=== PATIENT | male | born 1965 | race African-American/Black ===

== ENCOUNTER 2024-10-06 12:45 | Emergency (ER) | payer MEDICAID, OTHER ==
[~2024-10-06] VITALS: Ht 185.4 cm; Wt 86.0 kg
[~2024-10-06 12:45] MED LIST: AMLO5TAB88 PO; ASPI-1160 PO; LIP40 PO
[2024-10-06 13:09] VITALS: O2SAT 100
[2024-10-06] MEDS ORDERED: NITROGLYCERIN 0.4MG TABLET SL SL PRN (13:30)
[2024-10-06 14:37] LABS: BASOPHILS % 0.7 % (0.0-2.0); EOSINOPHILS % 0.8 % (0.0-5.0); HEMATOCRIT. 47.3 % (42.0-52.0); HEMOGLOBIN. 15.4 g/dL (14.0-18.0); LYMPHOCYTES % 18.2 % (20.0-50.0); MEAN CORPUSCULAR HEMOGLOBIN 28.9 pg (28.0-32.0); MEAN CORPUSCULAR HGB CONC 32.7 g/dL (31.0-37.0); MEAN CORPUSCULAR VOLUME 88.6 fL (80.0-94.0); MONOCYTES % 10.1 % (2.0-8.0); NEUTROPHILS % 70.2 % (40.0-76.0); PLATELET 336 x1000/uL (130-400); RED BLOOD CELL COUNT 5.34 mill/uL (4.7-6.1); RED CELL DISTRIBUTION WIDTH 14.7 % (11.6-14.6); WHITE BLOOD COUNT 7.5 x1000/uL (4.5-11.0)
[2024-10-06 14:41] LABS: D-DIMER 0.54 mg/L FEU (<0.50); PARTIAL THROMBOPLASTIN TIME 29.1 sec (23.4-31.0); PROTHROMBIN TIME 10.9 sec (9.6-11.0)
[2024-10-06] MEDS: ASPIRIN 81MG TABLET PO ONE (14:51)
[2024-10-06 14:59] LABS: CHLORIDE 102 mEq/L (98-107); POTASSIUM 3.9 mEq/L (3.5-5.1); SODIUM 138 mEq/L (136-145)
[2024-10-06 15:02] LABS: CALCIUM 9.6 mg/dL (8.7-10.4); CARBON DIOXIDE 27 mEq/L (21-32)
[2024-10-06 15:05] LABS: TROPONIN I HIGH SENSITIVITY 25 ng/L (3.0-53)
[2024-10-06 15:07] LABS: CREATININE 1.3 mg/dL (0.6-1.3); GLUCOSE 87 mg/dL (70-105); UREA NITROGEN BLOOD 15 mg/dL (9-23)
[2024-10-06 15:08] LABS: ALANINE AMINOTRANSFERASE 26 IU/L (10-49)
[2024-10-06 15:09] LABS: ALBUMIN 4.7 g/dL (3.2-4.8); ASPARTATE AMINOTRANSFERASE 23 IU/L (<34); BILIRUBIN DIRECT 0.2 mg/dL (<=3.0); BILIRUBIN TOTAL 0.7 mg/dL (0.1-1.0); PROTEIN TOTAL 8.1 g/dL (6.0-8.3)
[2024-10-06] MEDS: KETOROLAC 30MG/ML VIAL IV STA (15:12)
[2024-10-06] MEDS: SODIUM CHLORIDE 0.9% 1,000 ML IV ONE (15:12)
[2024-10-06] MEDS ORDERED: ONDANSETRON HCL 4MG/2ML INJ IV PRN (21:30)
[2024-10-06] MEDS ORDERED: HYDROCODONE/ACETAMINOPHEN 5/325MG TABLET PO PRN (21:30)
[2024-10-06] MEDS ORDERED: ACETAMINOPHEN 325MG TABLET PO PRN (21:30)
[2024-10-06] MEDS ORDERED: CLONIDINE 0.1MG TABLET PO PRN (21:30)
[2024-10-06] MEDS ORDERED: NALOXONE HCL 0.4MG/ML VIAL IV PRN (21:30)
[2024-10-06] MEDS ORDERED: ZOLPIDEM TARTRATE 5MG TABLET PO PRN (21:30)
[2024-10-06 23:11] VITALS: BP 145/82; PULSE 58; RESP 16; TEMP 36.8; O2SAT 100
[2024-10-06] MEDS ORDERED: IOHEXOL-350 100 ML BOTTLE ONE (23:12)
[2024-10-07] MEDS ORDERED: ENOXAPARIN 40MG/0.4ML SYR SUBCUT SCH (09:00)
[2024-10-07] MEDS ORDERED: PANTOPRAZOLE SODIUM 40 MG/VIAL IV SCH (09:00)
== END 2024-10-06 23:17 | disposition left against medical advice (07) ==
LOC: ER 13:46 → CANBEDREQ 17:39 → ER 23:17
DX: R07.9 Chest pain, unspecified (principal); R10.9 Unspecified abdominal pain; E03.9 Hypothyroidism, unspecified; E11.9 Type 2 diabetes mellitus without complications; F10.90 Alcohol use, unspecified, uncomplicated; I10 Essential (primary) hypertension; F12.90 Cannabis use, unspecified, uncomplicated; Z79.82 Long term (current) use of aspirin; Z79.899 Other long term (current) drug therapy; Z86.73 Personal history of transient ischemic attack (TIA), and cerebral infarction without residual deficits; Y90.9 Presence of alcohol in blood, level not specified
CPT/HCPCS: 80076; 80048; 83880; 83690; 85025; 85379; 85610; 85730; 84484; 36415; 71045; 71275; 74176; 93005; 96374; 99285; Q9967; Z7610 ×3; J1885; J7030